=== PATIENT | female | born 1955 | race Caucasian/White ===

== ENCOUNTER → 2016-09-04 | Outpatient (CLI) | payer OTHER | LOC: MC.RAD 10:39 | DX: Z12.31 Encounter for screening mammogram for malignant neoplasm of breast (principal) ==

== ENCOUNTER → 2017-09-22 | Outpatient (CLI) | payer OTHER | LOC: MC.RAD 14:11 | DX: Z12.31 Encounter for screening mammogram for malignant neoplasm of breast (principal) ==

== ENCOUNTER 2018-09-23 13:02 | Day surgery (SDC) | payer BC ==
[2018-09-23] VITALS (11 sets, daily range): BP systolic 101–137; BP diastolic 62–84; PULSE 60–74
[~2018-09-23] VITALS: Ht 162.6 cm; Wt 56.0 kg
--- NOTE | 2018-09-23 13:27 | NUR ---
US NOTIFIED THAT THE PT IS HERE ALONG WITH RT.
[2018-09-23 13:46] LABS: HEMATOCRIT 42.3 % (37.0-47.0); HEMOGLOBIN 14.4 g/dl (12.5-16.0); MEAN CELL VOLUME 90 fl (80.0-100.0); MEAN CORPUSCULAR HEMOGLOBIN 31 pg (27.0-31.0); MEAN CORPUSCULAR HGB CONC 34 g/dl (33.0-37.0); MEAN PLATELET VOLUME 10.1 fl (7.4-10.4); PLATELET COUNT 280 K/mm3 (130-400); RED BLOOD COUNT 4.69 M/mm3 (4.10-5.30); REDCELL DISTRIBUTION WIDTH-CV 12.5 % (11.5-14.5)
[2018-09-23 13:57] LABS: INR 0.9 (0.8-3.0); PROTHROMBIN TIME 10.9 SECONDS (9.7-12.8)
[2018-09-23] MEDS ORDERED: ZYRTEC 10MG10 MG PO (13:58)
[2018-09-23] MEDS ORDERED: CALCIUM CARBON650 M2 (13:58)
[2018-09-23] MEDS ORDERED: FLONASEALLERGY NS (13:59)
[2018-09-23] MEDS ORDERED: FAMVIR 500500 MG/TAB PO (13:59)
[2018-09-23] MEDS ORDERED: MULTI VITAMINS1 TAB PO (14:00)
[2018-09-23] MEDS ORDERED: ADVIL200 MG PO (14:00)
[2018-09-23] MEDS ORDERED: PRILOSEC10 MG PO (14:01)
[2018-09-23] MEDS ORDERED: OMEGA-3 1000 MG1 CAP PO (14:01)
[2018-09-23] MEDS ORDERED: PRAVACHOL10 MG PO (14:02)
[2018-09-23 14:03] LABS: CALCIUM 9.4 mg/dL (8.4-10.2); CREATININE, serum 0.76 (0.52-1.25); POTASSIUM 4.1 mmol/L (3.4-5.0)
[2018-09-23] MEDS ORDERED: TOPROL XL 50MG50 MG PO (14:04)
[2018-09-23] MEDS ORDERED: TRIAMCINOLONE A15 GM TP (14:04)
--- NOTE | 2018-09-23 14:42 | NUR ---
SEE [facility] FOR MEDICATION ADMINISTRATION TIMES AND INTRA/POST SEDATION ASSESSMENT/RASS SCORE
[2018-09-23] MEDS ORDERED: ASPIRIN E.C. 8181 MG PO (15:36)
[2018-09-23] MEDS ORDERED: PRAVACHOL 40MG40 MG PO (15:37)
--- NOTE | 2018-09-23 19:10 | NUR ---
AIR WAS RELEASED AT 1700 BUT PT CONTINUED TO BLEED, AIR WAS PLACED BACK INTO THE TR BAND. AIR WAS RELEASED AGAIN AT 1800, PT CONTINUED TO HAVE BLEEDING. 5 ML OF AIR WAS RELEASED AGAIN AND MONITORING AT THIS TIME.
--- NOTE | 2018-09-23 19:31 | NUR ---
PT CONTINUES TO HAVE BLEEDING FROM SITE. AIR WAS PUT BACK INTO THE BAND AND THIS RN WILL CONTINUE TO MONITOR.
--- NOTE | 2018-09-23 20:12 | NUR ---
THE REMAINING AIR WAS RELEASED FROM THE TR BAND. NO BLEEDING. 2X2 GAUZE AND COBAN APPLIED TO RIGHT WRIST. D/C INSTRUCTIONS WERE REVIEWED WITH PT/SPOUSE. PT/SPOUSE VOICE UNDERSTANDING. PT VOIDED WITH NO DIFFICULTY. PT TOLERATED INTAKE WITH NO N/V.
--- NOTE | 2018-09-23 21:02 | NUR ---
PT WAS DISCHARGED VIA W/C TO THE CARE OF SPOUSE IN PRIVATE VEHICLE WITH DISCHARGE INSTRUCTIONS IN HAND. IV WAS DISCONTINUED WITH CATHETER TIP INTACT, NO PHLEBITIS OR INFILTRATION.
== END 2018-09-23 21:04 | disposition home or self-care (01) ==
LOC: COL.CAR 13:02
PROVIDERS: Internal Medicine Cardiovascular Disease
DX: I25.10 Atherosclerotic heart disease of native coronary artery without angina pectoris (principal); E78.2 Mixed hyperlipidemia; I07.1 Rheumatic tricuspid insufficiency; E03.9 Hypothyroidism, unspecified; Z87.891 Personal history of nicotine dependence; Z79.899 Other long term (current) drug therapy; Z79.82 Long term (current) use of aspirin; Z88.1 Allergy status to other antibiotic agents; Z88.0 Allergy status to penicillin; Z80.9 Family history of malignant neoplasm, unspecified
CPT/HCPCS: J1644; J2250; J3010; Q9967

== ENCOUNTER → 2018-10-27 | Outpatient (CLI) | payer BC ==
[~2018-10-27] MED LIST: ADVIL200 MG PO; ASPIRIN E.C. 8181 MG PO; CALCIUM CARBON650 M2; FAMVIR 500500 MG/TAB PO; FLONASEALLERGY NS; MULTI VITAMINS1 TAB PO; OMEGA-3 1000 MG1 CAP PO; PRAVACHOL 40MG40 MG PO; PRAVACHOL10 MG PO; PRILOSEC10 MG PO; TOPROL XL 50MG50 MG PO; TRIAMCINOLONE A15 GM TP; ZYRTEC 10MG10 MG PO
== END ==
LOC: MC.RAD 15:32
DX: Z12.31 Encounter for screening mammogram for malignant neoplasm of breast (principal)

== ENCOUNTER → 2019-10-31 | Outpatient (CLI) | payer BC | LOC: MC.RAD 15:52 | DX: Z12.31 Encounter for screening mammogram for malignant neoplasm of breast (principal) ==

== ENCOUNTER → 2019-11-10 | Outpatient (CLI) | payer BC | LOC: MC.RAD 13:57 | DX: N63.10 Unspecified lump in the right breast, unspecified quadrant (principal) ==

== ENCOUNTER → 2021-01-09 | Outpatient (CLI) | payer BC | LOC: MC.RAD 15:24 | DX: Z12.31 Encounter for screening mammogram for malignant neoplasm of breast (principal) ==

== ENCOUNTER → 2023-03-03 | Outpatient (CLI) | payer MEDICARE | LOC: MC.RAD 09:56 | DX: Z12.31 Encounter for screening mammogram for malignant neoplasm of breast (principal) ==